=== PATIENT | male | born 1965 | race Caucasian/White ===

== ENCOUNTER 2019-03-26 17:20 | Emergency (ER) | payer OTHER, BC ==
[~2019-03-26] VITALS: Ht 180.3 cm; Wt 95.3 kg
--- NOTE | 2019-03-26 17:22 | NUR ---
Patient to ER bed H1 to gown for evaluation. Side rails up.
--- NOTE | 2019-03-26 17:24 | NUR ---
Pt brought by BLS, Alert x1, pt presents to ER for medical clearance prior transferring to [facility],pt has been hitting himself, yelling to staff, sudden outburst, VSS, skin pink and warm, cap refill <3, respirations even and unlabored.
[2019-03-26 17:25] VITALS: BP_SYST 122
--- NOTE | 2019-03-26 17:30 | NUR ---
Dr Brady at bedside examining patient
[2019-03-26 18:08] LABS: BASOPHILS # (AUTO) 0.1 K/uL (0.0-0.2); EOSINOPHILS # (AUTO) 0.2 K/uL (0.0-0.4); HEMOGLOBIN 14.2 g/dL (14.0-18.0); NEUTROPHILS # (AUTO) 3.9 K/uL (1.8-7.7); WHITE BLOOD COUNT (AUTO) 9.5 K/uL (4.8-10.8)
[2019-03-26] MEDS ORDERED: FENO48TA4 PO (18:12)
[2019-03-26] MEDS ORDERED: ACET325T53 PO (18:12)
[2019-03-26] MEDS ORDERED: CLOZ25TA2 PO (18:12)
[2019-03-26] MEDS ORDERED: DIVA500T4 PO (18:12)
[2019-03-26] MEDS ORDERED: FAMO-132 PO (18:12)
[2019-03-26] MEDS ORDERED: DOCU-144 PO (18:12)
[2019-03-26] MEDS ORDERED: BENA5TAB5 PO (18:12)
[2019-03-26] MEDS ORDERED: OMEG1CAP PO (18:12)
[2019-03-26] MEDS ORDERED: ATEN50TA PO (18:12)
--- NOTE | 2019-03-26 18:12 | NUR ---
Medication reconciliation completed with information provided by [facility]. Any prior medication reconciliation on file was reviewed and corrected.
[2019-03-26 18:16] LABS: ANION GAP 7 (5-15); CALCIUM 9.2 mg/dL (8.4-11.0); CHLORIDE 106 mmol/L (98-107); CREATININE 0.83 mg/dL (0.55-1.30); GLUCOSE 110 mg/dL (70-99); POTASSIUM 4.8 mmol/L (3.5-5.1); SODIUM SERUM 139 mmol/L (136-145); UREA NITROGEN, BLOOD 15 mg/dL (8-21)
[2019-03-26 18:17] LABS: BASOPHILS % (AUTO) 1.1 % (0.0-2.0); EOSINOPHILS % (AUTO) 1.7 % (0.0-4.0); GFR AFRICAN AMERICAN 124 mL/min (>90); HEMATOCRIT 41.4 % (36-54); LYMPHOCYTES % (AUTO) 41.9 % (20.5-51.5); MEAN CORPUSCULAR HEMOGLOBIN 33 pg (27-31); MEAN CORPUSCULAR HGB CONC 34 % (32-36); MEAN CORPUSCULAR VOLUME 96 fL (79.0-98.0); MONOCYTES # (AUTO) 1.3 K/uL (0.0-1.0); MONOCYTES % (AUTO) 13.7 % (1.7-9.3); NEUTROPHILS % (AUTO) 41.6 % (40.0-70.0); RED BLOOD CELL COUNT(AUTO) 4.34 MIL/uL (4.2-6.2); RED CELL DISTRIBUTION WIDTH 13.7 % (9.0-15.0)
[2019-03-26 18:21] LABS: ALANINE AMINOTRANSFERASE 36 U/L (12-78); ALBUMIN 3.2 g/dL (3.4-4.8); ASPARTATE AMINOTRANSFERASE 21 U/L (10-37); TOTAL BILIRUBIN 0.2 mg/dL (0.0-1.0)
[2019-03-26 18:24] LABS: ALCOHOL, BLOOD < 3 mg/dL (<10)
[2019-03-26 18:32] LABS: BILIRUBIN,URINE NEGATIVE (NEGATIVE); BLOOD, URINE NEGATIVE (NEGATIVE); CLARITY/URINE CLEAR (CLEAR); COLOR,URINE YELLOW (YELLOW); GLUCOSE,URINE NEGATIVE (NEGATIVE); KETONES,URINE NEGATIVE (NEGATIVE); LEUKOCYTE ESTERASE ,URINE NEGATIVE (NEGATIVE); NITRITE, URINE NEGATIVE (NEGATIVE); PROTEIN URINE NEGATIVE (NEGATIVE)
[2019-03-26 18:34] LABS: PLATELET COUNT (AUTO) 184 K/uL (130-430)
[2019-03-26 18:55] LABS: BARBITURATE, URINE NEGATIVE (NEG <=200); BENZODIAZEPINE, URINE NEGATIVE (NEG <=150); CANNABINOID, URINE NEGATIVE (NEG <=50); COCAINE, URINE NEGATIVE (NEG <=150); METHAMPHETAMINES SCREEN,URINE NEGATIVE (NEG <=500); OPIATE, URINE NEGATIVE (NEG <=100); PHENCYCLIDINE SCREEN,URINE NEGATIVE (NEG <=25); UR TRICYCLIC ANTIDEPRESSANTS NEGATIVE (NEG <=300); URINE AMPHETAMINE NEGATIVE (NEG <=500); URINE METHADONE NEGATIVE (NEG <=200); URINE OXYCODONE SCREEN NEGATIVE (NEG <=100); URINE PROPOXYPHENE SCREEN NEGATIVE (NEG <=300)
--- NOTE | 2019-03-26 18:55 | NUR ---
Junior huggins in ED - 03/26/19 at 1900 by SDEDAFJ Pt A&Ox2, pt resting at this time , VSS, respirations even and unlabored.
--- NOTE | 2019-03-26 18:57 | NUR ---
Pt VSS, respirations even and unlabored.
--- NOTE | 2019-03-26 19:01 | NUR ---
Pt yelling to staff members , anxious, respirations even and unlabored.
--- NOTE | 2019-03-26 19:14 | NUR ---
Report given to ramona GARCIA
[2019-03-26 20:34] VITALS: BP_SYST 111
--- NOTE | 2019-03-26 20:34 | NUR ---
Patient to be transferred to [facility]. Is being transferred due to higher level of care. Receiving facility has accepting physician and available space. ER physician has signed transfer form. Patient or responsible green party has agreed to transfer and signed form. Patient belongings inventoried and will be sent with patient. Copy of nursing notes, lab reports, EKG, Physicians Orders and X-rays to be sent with patient. Report called to Krystal at receiving facility. Receiving physician is Bernice[facility] for transfer. Arrived for transfer.
[2019-03-28 08:54] LABS: BASOPHILS # (AUTO) 0.1 K/uL (0.0-0.2); BASOPHILS % (AUTO) 0.6 % (0.0-2.0); EOSINOPHILS # (AUTO) 0.3 K/uL (0.0-0.4); EOSINOPHILS % (AUTO) 3.1 % (0.0-4.0); HEMATOCRIT 40.7 % (36-54); HEMOGLOBIN 14.1 g/dL (14.0-18.0); LYMPHOCYTES # (AUTO) 3.4 K/uL (1.0-5.5); LYMPHOCYTES % (AUTO) 37.9 % (20.5-51.5); MEAN CORPUSCULAR HEMOGLOBIN 33 pg (27-31); MEAN CORPUSCULAR HGB CONC 35 % (32-36); MEAN CORPUSCULAR VOLUME 96 fL (79.0-98.0); MONOCYTES # (AUTO) 1.2 K/uL (0.0-1.0); MONOCYTES % (AUTO) 13.4 % (1.7-9.3); RED BLOOD CELL COUNT(AUTO) 4.24 MIL/uL (4.2-6.2); RED CELL DISTRIBUTION WIDTH 13.8 % (9.0-15.0); WHITE BLOOD COUNT (AUTO) 8.9 K/uL (4.8-10.8)
[2019-03-28 09:10] LABS: CREATININE 0.85 mg/dL (0.55-1.30); POTASSIUM 4.1 mmol/L (3.5-5.1)
[2019-03-28 09:40] LABS: CALCIUM 8.5 mg/dL (8.4-11.0)
[2019-03-28 09:47] LABS: PLATELET COUNT (AUTO) 198 K/uL (130-430)
== END 2019-03-26 20:34 ==
LOC: SED 17:20
DX: F20.0 Paranoid schizophrenia (principal); Z79.899 Other long term (current) drug therapy; Z88.0 Allergy status to penicillin; Z88.8 Allergy status to other drugs, medicaments and biological substances; Z91.018 Allergy to other foods
CPT/HCPCS: 36415; 80048; 80053; 80164; 80307; 81003; 85025; 99285; G0482

== ENCOUNTER 2021-05-19 09:59 | Emergency (ER) | payer OTHER, BC, SELFPAY ==
[~2021-05-19] VITALS: Ht 172.7 cm; Wt 82.6 kg
[~2021-05-19 09:59] MED LIST: ACET325T53 PO; ATEN50TA PO; BENA5TAB5 PO; CLOZ25TA PO; DIVA500T4 PO; DOCU-144 PO; FAMO-132 PO; FENO48TA7 PO; OMEG1CAP PO
[2021-05-19 10:05] VITALS: BP_SYST 125
[2021-05-19 11:46] LABS: ANION GAP 6 (5-15); CHLORIDE 102 mmol/L (98-107); CREATININE 0.89 mg/dL (0.55-1.30); GLUCOSE 261 mg/dL (70-99); POTASSIUM 4.7 mmol/L (3.5-5.1); SODIUM SERUM 136 mmol/L (136-145); UREA NITROGEN, BLOOD 20 mg/dL (8-21)
[2021-05-19 11:52] LABS: ALANINE AMINOTRANSFERASE 38 U/L (12-78); ALBUMIN 3.3 g/dL (3.4-4.8); ASPARTATE AMINOTRANSFERASE 17 U/L (10-37); TOTAL BILIRUBIN 0.2 mg/dL (0.0-1.0)
[2021-05-19 12:01] LABS: BASOPHILS # (AUTO) 0.1 K/uL (0.0-0.2); EOSINOPHILS # (AUTO) 0.3 K/uL (0.0-0.4); EOSINOPHILS % (AUTO) 3.2 % (0.0-4.0); HEMATOCRIT 40.5 % (36-54); HEMOGLOBIN 14.1 g/dL (14.0-18.0); LYMPHOCYTES # (AUTO) 2.2 K/uL (1.0-5.5); LYMPHOCYTES % (AUTO) 28.1 % (20.5-51.5); MEAN CORPUSCULAR HEMOGLOBIN 32 pg (27-31); MEAN CORPUSCULAR HGB CONC 35 % (32-36); MEAN CORPUSCULAR VOLUME 92 fL (79.0-98.0); MONOCYTES # (AUTO) 0.8 K/uL (0.0-1.0); MONOCYTES % (AUTO) 9.5 % (1.7-9.3); NEUTROPHILS # (AUTO) 4.6 K/uL (1.8-7.7); NEUTROPHILS % (AUTO) 58.2 % (40.0-70.0); PLATELET COUNT (AUTO) 236 K/uL (130-430); RED BLOOD CELL COUNT(AUTO) 4.42 MIL/uL (4.2-6.2); RED CELL DISTRIBUTION WIDTH 13.9 % (9.0-15.0)
[2021-05-19 12:42] LABS: ACETAMINOPHEN < 1 ug/mL (1-30); ALCOHOL, BLOOD < 3 mg/dL (<10); GFR AFRICAN AMERICAN 113 mL/min (>90)
[2021-05-19 15:13] VITALS: BP_SYST 122
== END 2021-05-19 15:13 ==
LOC: SED 09:59
DX: R45.6 Violent behavior (principal); Z88.0 Allergy status to penicillin; Z88.5 Allergy status to narcotic agent; Z79.899 Other long term (current) drug therapy; Z20.822 Contact with and (suspected) exposure to COVID-19
CPT/HCPCS: 36415; 80053; 85025; 87426; 93005; 99285; G0480; G0481; G0482